=== PATIENT | male | born 1945 | race Caucasian/White ===

== ENCOUNTER 2016-12-10 18:01 | Emergency (ER) | payer SELFPAY ==
[2016-12-10] MEDS ORDERED: LIDOCAINE 1%-EPI 1:100,000 20 ML VIAL SQ STA (18:16)
--- NOTE | 2016-12-10 18:19 | ED ---
General Adult HPI - General Chief complaint: Fall Stated complaint: fall with laceration to head Time Seen by Provider: 12/10/16 18:03 Source: patient, RN notes reviewed Mode of arrival: ambulatory Limitations: no limitations - History of Present Illness Initial comments: Patient 71-year-old male who presents emergency room today with a chief complaint of a fall and laceration to the back of his head that occurred approximate hour ago. He does admit that he was golfing was going down a path that was wet and he slipped falling backwards hitting the back of his head. Denies any loss conscious. Does admit to a laceration. States that he is on Xeralto due to history of A. fib. Patient does admit to headache. Denies any other complaints or associated symptoms. States is unsure of his tetanus status. Patient denies any recent fever, chills, shortness of breath, chest pain , back pain, abdominal pain, nausea or vomiting, numbness or tingling, dysuria or hematuria, constipation or diarrhea, visual changes, or any other complaints. - Related Data Home Medications Medication Instructions Recorded Confirmed Rivaroxaban [Xarelto] 250 mg PO DAILY 12/10/16 12/10/16 Tamsulosin HCl [Flomax] 0.4 mg PO HS 12/10/16 12/10/16 Allergies Allergy/AdvReac Type Severity Reaction Status Date / Time Penicillins AdvReac Rash/Hives Verified 12/10/16 19:31 Review of Systems ROS Statement: Those systems with pertinent positive or pertinent negative responses have been documented in the HPI. ROS Other: All systems not noted in ROS Statement are negative. Past Medical History Past Medical History: Atrial Fibrillation Additional Past Medical History / Comment(s): prostate History of Any Multi-Drug Resistant Organisms: None Reported Past Surgical History: Cholecystectomy, Hernia Repair Additional Past Surgical History / Comment(s): bladder cancer remission Past Psychological History: No Psychological Hx Reported Smoking Status: Current some day smoker Past Alcohol Use History: None Reported Past Drug Use History: None Reported General Exam - General Exam Comments Initial Comments: General: The patient is awake and alert, in no distress, and does not appear acutely ill. Eye: Pupils are equal, round and reactive to light, extra-ocular movements are intact. No nystagmus. There is normal conjunctiva bilaterally. No signs of icterus. Ears, nose, mouth and throat: There are moist mucous membranes and no oral lesions. Neck: The neck is supple, there is no tenderness or JVD. Cardiovascular: There is a regular rate and rhythm. No murmur, rub or gallop is appreciated. Respiratory: Lungs are clear to auscultation, respirations are non-labored, breath sounds are equal. No wheezes, stridor, rales, or rhonchi Musculoskeletal: Normal ROM, no tenderness. No tenderness or cervical, thoracic, lumbar spine. Strength 5/5. Sensation intact. Pulses equal bilaterally 2+. Neurological: A&O x 3. CN II-XII intact, There are no obvious motor or sensory deficits. Coordination appears grossly intact. Speech is normal. Skin: Laceration noted to the occipital. Psychiatric: Cooperative, appropriate mood & affect, normal judgment. Limitations: no limitations Course Vital Signs 12/10/16 12/10/16 12/10/16 18:04 18:55 22:02 Temperature 97.1 F L 97 F L Pulse Rate 49 L 52 L 51 L Respiratory 18 20 18 Rate Blood Pressure 165/79 150/84 145/79 O2 Sat by Pulse 94 L 95 95 Oximetry Medical Decision Making - Medical Decision Making Patient's CT of the head and neck negative other than the hematoma to the posterior aspect. No sign of intracranial mass hemorrhage or bleed. Cervical spine negative. Results were discussed with the patient. Patient discussed and seen by attending physician Dr. Perez. Options were discussed with patient about transfer for observation due to head injury on blood thinner. Patient has declined being transferred. States feels comfortable being discharged home. Patient been advised return to emergency room if any symptoms increase or worsen or for any other concerns. He states understanding and is in agreement with the plan. Disposition Clinical Impression: Head injury, Concussion, Hematoma Disposition: HOME SELF-CARE Condition: Good Instructions: Head Injury (ED) Additional Instructions: Please follow-up with family doctor in the next 1-2 days. Please return to emergency room if the symptoms increase or worsen or for any other concerns. Referrals: None,Stated [Primary Care Provider] - 1-2 days
--- NOTE | 2016-12-10 18:43 | CT ---
EXAMINATION TYPE: CT brain kvng wo con DATE OF EXAM: 12/10/2016 COMPARISON: NONE HISTORY: 71-year-old male Patient slipped and fell on cement, posterior head injury. No LOC. CT DLP: 1355.90 mGycm Automated exposure control for dose reduction was used. Technique: Examination of the head was done in axial plane without intravenous contrast. Coronal and sagittal reconstructions performed. CT of the cervical spine was obtained in axial plane without intravenous injection of contrast mater ial. Coronal and sagittal reformatted images were obtained from the axial views for evaluation of f ractures, spinal alignment and canal. FINDINGS: Head: There is no evidence of acute intracranial hemorrhage, acute ischemic changes, mass, mass-effect, or extra-axial fluid collection. There is no effacement of cerebral sulci or basal subarachnoid cister ns. There is no hydrocephalus. There is no midline shift. Levi-white matter distinction is preserv ed. There is a moderate-sized right posterior scalp hematoma. No underlying calvarial fracture. Paranasal sinuses and mastoid air cells are well pneumatized. Orbits and globes are intact. Cervical spine: No craniocervical junction abnormality, predental space widening, or prevertebral soft tissue swellin g. Normal alignment of the cervical spine. Moderate disc/endplate degenerative change throughout along with facet and uncovertebral joint arthro hazel. Assessment of the spinal canal limited at C6-C7 and below due to artifact from the patient's shoulder s. Variable mild and moderate neuroforaminal stenoses throughout. No prevertebral or paravertebral soft tissue abnormality seen. Sagittal and coronal reformatted images confirm above findings. COMBINED IMPRESSION: 1. Moderate-sized right posterior scalp hematoma. No underlying calvarial fracture or acute intracran ial abnormality seen. 2. No acute fracture or malalignment of the cervical spine. Moderate spondylotic change.
[2016-12-10 22:05] VITALS: BP 145/79; PULSE 51; RESP 18; TEMP 97
== END 2016-12-10 22:06 | disposition home or self-care (01) ==
LOC: EC 18:01
DX: S06.0X9A Concussion with loss of consciousness of unspecified duration, initial encounter (principal); I48.91 Unspecified atrial fibrillation; F17.200 Nicotine dependence, unspecified, uncomplicated; Z79.899 Other long term (current) drug therapy; Z79.01 Long term (current) use of anticoagulants; Z88.0 Allergy status to penicillin; Z85.51 Personal history of malignant neoplasm of bladder; W01.10XA Fall on same level from slipping, tripping and stumbling with subsequent striking against unspecified object, initial encounter; Y93.53 Activity, golf; Y92.39 Other specified sports and athletic area as the place of occurrence of the external cause
CPT/HCPCS: 70450; 72125; 99283